=== PATIENT | female | born 1970 | race Caucasian/White ===

== ENCOUNTER 2016-08-24 17:53 | Emergency (ER) | payer BC ==
[~2016-08-24] VITALS: Ht 160 cm; Wt 91.3 kg
[~2016-08-24 17:53] MED LIST: ALBU1AER9 INH; LISI-791 PO
[2016-08-24 17:56] VITALS: TEMP 37.4; Ht 160 cm; Wt 91.3 kg
[2016-08-24] MEDS ORDERED: PRLSR20 PO (18:26)
--- NOTE | 2016-08-24 19:17 | EMERGENCY ROOM VISIT NOTE ---
ED Visit Note First contact with patient: 18:00 Chief Complaint: Cast on LEFT Hand Too Tight, Dizzy History of Present Illness: Patient is a 46-year-old female who presents to the emergency department today for pain to the LEFT wrist. She reports that she's had the cast in place for approximately 4 weeks secondary to a ligamentous injury. She went to her orthopedic provider today and had her cast replaced as she had gotten the other cast wet. She reports that since leaving, she noted pain and burning to the wrist. She reports some tingling in her fingers as well. She denies experiencing the symptoms previously. The patient rates her current discomfort as a 5/10. She denies any elbow pain, or shoulder pain. Medications: Reviewed and discussed with the patient. Allergies: Nitroglycerin, prednisone PMH: No pertinent past medical history. SHx: Patient is a 46-year-old female who lives locally. ROS: All pertinent positive and negative review of systems are appropriately documented in the History of Present Illness. Physical Exam: VITAL SIGNS - Vital signs and Nursing Notes were reviewed. GENERAL -46-year-old female, well-developed, well-nourished, and in no acute distress. SKIN -cast in place to the LEFT wrist. Capillary refill brisk. Full range of motion of the fingers appreciated. NEURO - sensation intact to the fingers distally. ED Course: Patient was seen and evaluated by myself. The cast was bivalved by myself. Chiki wrap was applied by emergency Department lead pharmacy technician under my direct supervision. Patient had complete resolve of symptoms. Patient remained neurovascularly intact pre-and post-Chiki wrap application. The patient was encouraged to follow-up with her orthopedist from today's visit. She was educated on worrisome symptoms for return visit to the emergency department. Patient discharged home in good condition. In the evaluation and treatment of this patient, the following differential diagnoses were considered: Wrist Sprain, Wrist Fracture, Wrist Dislocation, Scapholunate Dissociation, Carpal Fracture, Metacarpal Fracture, Radial Styloid Process Fracture, Ulnar Styloid Process Fracture, or Carpal Tunnel Syndrome. Impression: Wrist Pain Discharge Instructions: You've been seen in the emergency department today for your wrist pain. Please follow-up with your orthopedic surgeon from today's visit. Return for any changing or worsening symptoms. Problem List Medical Problems: (1) Dyslipidemia Status: Chronic (2) Esophageal stricture Permanent Comment: s/p dilation Status: Chronic (3) HTN (hypertension) Status: Chronic (4) Obesity Status: Chronic (5) TMJ (temporomandibular joint syndrome) Status: Chronic Current/Historical Medications Scheduled Lisinopril (Zestril), 10 MG PO DAILY Omeprazole (Prilosec), 20 MG PO DAILY Scheduled PRN Albuterol Sulfate (Proair Hfa), 2 PUFFS INH QID PRN Allergies Coded Allergies: Nitroglycerin (Verified Adverse Reaction, Intermediate, 0, 08/24/16) hypotension headache Prednisone (Verified Adverse Reaction, Unknown, Tachycardia., 08/24/16) Vital Signs Date Time Temp Pulse Resp B/P Pulse Ox O2 Delivery O2 Flow Rate FiO2 08/24/16 19:21 95 20 146/89 98 08/24/16 17:56 37.4 107 18 159/86 98 Room Air Departure Information Impression Primary Impression: Wrist pain, left Additional Impression: Cast discomfort Dispostion Home / Self-Care Condition GOOD Referrals Sea Sue M.D. (MEDICAL) (PCP) Patient Instructions My [facility] Additional Instructions You've been seen in the emergency department today for your wrist pain. Please follow-up with your orthopedic surgeon from today's visit. Return for any changing or worsening symptoms. Problem Qualifiers
[2016-08-24 19:21] VITALS: BP 146/89; PULSE 95; O2SAT 98
== END 2016-08-24 19:22 | disposition home or self-care (01) ==
LOC: C.EDB 17:54 → C.EDD 19:22
DX: Z46.89 Encounter for fitting and adjustment of other specified devices (principal); M25.532 Pain in left wrist; I10 Essential (primary) hypertension; Z79.899 Other long term (current) drug therapy

== ENCOUNTER → 2017-07-05 | Outpatient (CLI) | payer BC ==
[~2017-07-05] MED LIST changes: +AMOX875T PO; +PRLSR20 PO; +PRVHFAIN INH
--- NOTE | 2017-07-05 12:07 | DIAGNOSTIC IMAGING REPORT ---
R TIBIA/FIBULA 2 VIEWS ROUTINE CLINICAL HISTORY: PAIN IN RIGHT VALLEJO pain COMPARISON: None. DISCUSSION: The bones and joint spaces appear intact. There is no evidence of fracture, dislocation or bony disease. There is no evidence for soft tissue swelling. IMPRESSION: Negative study. The above report was generated using voice recognition software. It may contain grammatical, syntax or spelling errors. Electronically signed by: Michael Estrella M.D. 07/05/2017 12:06 PM Dictated Date/Time: 07/05/2017 12:05 PM
== END | disposition home or self-care (01) ==
LOC: C.RAD 11:50
PROVIDERS: ATTEND Physician Assistant Medical
DX: M79.661 Pain in right lower leg (principal)

== ENCOUNTER 2017-07-18 19:24 | Emergency (ER) | payer BC ==
[~2017-07-18] VITALS: Ht 160 cm; Wt 92.4 kg
[~2017-07-18 19:24] MED LIST changes: -AMOX875T PO; -LISI-791 PO; -PRVHFAIN INH
[2017-07-18 19:26] VITALS: TEMP 36.8; Ht 160 cm; Wt 92.4 kg
[2017-07-18] MEDS ORDERED: PRVHFAIN INH (19:44)
[2017-07-18] MEDS ORDERED: AMOX875T PO (19:50)
[2017-07-18] MEDS ORDERED: AMOXICIL/CLAVU 875MG HOME PACK PO ONE (20:00)
[2017-07-18 20:05] VITALS: BP 160/110; PULSE 92; O2SAT 97
--- NOTE | 2017-07-18 20:05 | EMERGENCY ROOM VISIT NOTE ---
History First contact with patient: 19:29 Chief Complaint: EAR PAIN Stated Complaint: BAD EAR PAIN History of Present Illness The patient is a 47 year old female who presents to the Emergency Room with complaints of significant left ear pain and nonproductive cough. The patient reports that she has had a cough for the past several days, and developed stabbing ear pain yesterday afternoon. The patient reports that she has had a recent upper respiratory infection that was treated with amoxicillin. Her symptoms did improve until one week ago when her symptoms came back the patient denies any significant sinus congestion. She does report a mild sore throat. She rates her discomfort a 9 out of 10. She has not taken ibuprofen or Tylenol on an alternating or regular basis for the pain. Review of Systems 10 system review was performed and was negative except for pertinent positives and negatives as indicated in history of present illness Past Medical/Surgical History Medical Problems: (1) Dyslipidemia (2) Esophageal stricture (3) HTN (hypertension) (4) Obesity (5) TMJ (temporomandibular joint syndrome) Family History FH: cancer FH: diabetes mellitus Heart disease Hypertension Social History Smoking Status: Never Smoker Alcohol Use: none Marital Status: Housing Status: lives with family Occupation Status: employed Current/Historical Medications Scheduled Amoxicillin & Pot Clavulanate (Augmentin 875-125 mg), 1 TAB PO BID Lisinopril (Zestril), 10 MG PO DAILY Omeprazole (Prilosec), 20 MG PO DAILY Scheduled PRN Albuterol (Ventolin Hfa), 2 PUFFS INH QID PRN for SOB/Wheezing Physical Exam Vital Signs Date Time Temp Pulse Resp B/P (MAP) Pulse Ox O2 Delivery O2 Flow Rate FiO2 07/18/17 20:05 92 160/110 97 07/18/17 19:26 36.8 91 16 162/97 98 Room Air Physical Exam CONSTITUTIONAL: Healthy and well nourished. Alert and oriented X 3 with positive affect. HEENT: Normocephalic, atraumatic. Pupils equal, round and reactive. No facial edema noted. Examination of the right ear shows TM bulging without erythema, air-fluid levels or purulent effusion. Examination of the left ear shows TM erythema. Bony landmarks and light reflex are absent. The patient does have moderate cerumen accumulation without any external auditory canal erythema or edema. No rhinorrhea noted. OROPHARYNX: No postnasal drip or tonsillar hypertrophy. NECK: Full active range of motion without discomfort. RESPIRATORY: Clear to auscultation bilaterally with no wheezing, crackles, rhonchi or stridor. CARDIOVASCULAR: Regular rate and rhythm with no murmurs, rubs or gallops. MUSCULOSKELETAL: Full range of motion of all joints without discomfort. INTEGUMENTARY: No rash or other significant dermatologic conditions noted. NEUROLOGIC: No focal neurologic deficits noted. Medical Decision & Procedures Medications Administered Medications (Trade) Dose Ordered Sig/Antonino Route Start Time Stop Time Status Last Admin Dose Admin Amoxicillin/ Clavulanate Potassium (Augmentin 875MG Home Pack) 1 homepack UD ONCE PO 07/18/17 20:00 07/18/17 20:01 DC 07/18/17 20:01 1 HOMEPACK ED Course Patient history and physical exam were performed. Nurse's notes were reviewed. Vital signs were reviewed, showing a blood pressure 162/97. Examination is consistent with left otitis media. The patient was provided a prescription for Augmentin. She was encouraged to alternate ibuprofen and Tylenol for better pain relief. The patient does have a Ventolin metered-dose inhaler at home that she can use for cough. She was encouraged to follow-up with her PCP if symptoms are not improving within the next week. She was instructed to contact them sooner for any progressively worsening symptoms or drainage from the ear. The patient was happy with plan of care, voice understanding of all discharge instructions, and rated her discomfort a 6 out of 10 at the conclusion of my exam. She refused any ibuprofen or Tylenol while in the emergency department. Medical Decision Medication Reconcilliation Current Medication List: was personally reviewed by [place] Blood Pressure Screening Patient's blood pressure: Elevated blood pressure Blood pressure disposition: Referred to PCP Impression Primary Impression: Left otitis media Additional Impressions: Upper respiratory infection Elevated blood pressure reading with diagnosis of hypertension Departure Information Dispostion Home / Self-Care Prescriptions Amoxicillin & Pot Clavulanate (Augmentin 875-125 mg) 1 Tab Tab 1 TAB PO BID for 10 Days, #20 TAB Prov: Rl Charles PA 07/18/17 Forms HOME CARE DOCUMENTATION FORM, IMPORTANT VISIT INFORMATION Patient Instructions My [facility], ED Otitis Media Acute Adult Additional Instructions Complete all Augmentin antibiotics as prescribed. Ibuprofen 600 mg and/or Tylenol 1000 mg every 8 hours. You may also alternate these medications for more effective pain relief: Ibuprofen --4 HRS--> Tylenol --4 HRS--> ibuprofen --4 HRS--> Tylenol .... Follow-up with your family doctor for recheck in 7-10 days, sooner with any worsening pain, drainage from the ear or other concerning symptoms. Problem Qualifiers
[2017-07-18] MEDS ORDERED: LISI-791 PO (21:31)
== END 2017-07-18 20:07 | disposition home or self-care (01) ==
LOC: C.EDB 19:25 → C.EDD 20:07
DX: H66.92 Otitis media, unspecified, left ear (principal); J06.9 Acute upper respiratory infection, unspecified; R03.0 Elevated blood-pressure reading, without diagnosis of hypertension; E78.5 Hyperlipidemia, unspecified; I10 Essential (primary) hypertension; E66.9 Obesity, unspecified; Z80.9 Family history of malignant neoplasm, unspecified; Z83.3 Family history of diabetes mellitus; Z82.49 Family history of ischemic heart disease and other diseases of the circulatory system; Z79.899 Other long term (current) drug therapy

== ENCOUNTER → 2017-09-27 | Outpatient (CLI) | payer BC ==
[~2017-09-27] MED LIST changes: -ALBU1AER9 INH; +GADAVIST IV PRN; +LISI-791 PO; +PRVHFAIN INH
--- NOTE | 2017-09-27 13:09 | DIAGNOSTIC IMAGING REPORT ---
BRAIN COMBO HISTORY: 47 years-old Female OPTIC NEURITIS acute blurred vision with dizziness and left-sided headache COMPARISON: None available TECHNIQUE: Multiplanar multisequence MRI of the brain was obtained both with and without the use of 9 mL Gadavist FINDINGS: The large field of view polisher dial localizer images demonstrate no gross abnormality. The midline structures including the corpus callosum, brainstem, optic chiasm, pituitary and pineal glands are unremarkable in the sagittal T1 series. There is no cerebellar tonsillar herniation. There is no restricted diffusion to suggest acute or subacute infarction. No acute intracranial hemorrhage, midline shift, abnormal extra-axial collections, hydrocephalus or intracranial mass. Mild amount of scattered T2/FLAIR hyperintensities are present within the subcortical white matter of the cerebral hemispheres bilaterally, notably within the frontal and parietal lobes. Additionally, there is focal area of subtle mildly increased FLAIR signal within the splenium of the corpus callosum with adjacent 4 mm focus of increased FLAIR signal within the adjacent right occipital lobe, nicely seen on images 17 and 18 of series 7. There is no abnormal intra-axial or extra-axial enhancement identified. No abnormal enhancement of the optic nerves identified on these images. The major flow voids at the level of the skull base appear patent. Mastoid air cells are clear. Minimal mucosal thickening of the left maxillary sinus and ethmoid air cells. Orbits, soft tissues and calvarium are unremarkable. IMPRESSION: 1. No acute intracranial abnormality identified. 2. Mild scattered T2/FLAIR hyperintensities within the subcortical white matter of the cerebral hemispheres bilaterally, notably within the frontal and parietal lobes are present in addition to a focal area of subtle mildly increased FLAIR signal within the splenium of the corpus callosum with adjacent 4 mm focus of increased FLAIR signal within the adjacent right occipital lobe. These findings are nonspecific with primary differential consideration being demyelinating disease. Many transient neurologic etiologies involving the splenium of the corpus callosum have been reported. These findings could be correlated with CSF analysis. 3. No abnormal intra-axial or extra-axial enhancement. The above report was generated using voice recognition software. It may contain grammatical, syntax or spelling errors. Electronically signed by: Chun Brown M.D. 09/27/2017 1:07 PM Dictated Date/Time: 09/27/2017 12:55 PM
--- NOTE | 2017-09-27 13:10 | DIAGNOSTIC IMAGING REPORT ---
ORBIT/FACE/NECK COMBO CLINICAL HISTORY: 47 years-old Female presenting with OPTIC NEURITIS, dizziness, blurred vision, left-sided headache. TECHNIQUE: Multisequence, multiplanar MR imaging of the orbits was performed before and after the administration of intravenous contrast. IV contrast: 9 mL of Gadavist. COMPARISON: None. FINDINGS: Localizer images: Unremarkable. Bilateral globes and intraorbital structures normal. Bilateral optic nerves normal without evidence of abnormal enhancement. No infiltration of the intraorbital fat. The intraorbital muscles are normal. Visualized cranial nerves within normal limits. Pituitary gland normal. Preserved T2 skull base flow voids. Normal opacification of the cavernous sinuses. Visualized portion of the brain parenchyma normal. No abnormal enhancement on postcontrast imaging. Minimal mucosal thickening in the left maxillary sinus. IMPRESSION: Normal contrast-enhanced MR examination of the orbits. No MR evidence of optic neuritis. Electronically signed by: Luis Samuels M.D. 09/27/2017 1:08 PM Dictated Date/Time: 09/27/2017 1:04 PM
== END | disposition home or self-care (01) ==
LOC: C.MRI 11:39
PROVIDERS: ATTEND Family Medicine
DX: H46.9 Unspecified optic neuritis (principal)